=== PATIENT | male | born 1955 | race Caucasian/White ===

== ENCOUNTER → 2017-04-16 | Outpatient (CLI) | payer BC ==
--- NOTE | 2017-04-16 17:18 | RADRPT ---
PROCEDURE: Right knee radiographs. CLINICAL INDICATION: Right knee pain. TECHNIQUE: Three views. Weight bearing. Frontal, lateral, and patellar view. COMPARISON: No prior studies are available for comparison. FINDINGS: There is no fracture or dislocation. The soft tissues are normal. There are degenerative changes with osteophytes arising from all 3 joint compartment margins. There is medial joint compartment narrowing and subarticular sclerosis. There is no lytic or blastic lesion. There is no radiopaque foreign body. IMPRESSION: 1. Moderate degenerative changes of the right knee. RPTAT: QQ .Manuel Mata MD, MD Date Time Electronically viewed and signed by .Manuel Mata MD, on 04/16/2017 17:17 .R/
--- NOTE | 2017-04-24 06:34 | HKNOTE ---
DATE OF SERVICE: 04/16/2017 MAIN COMPLAINT: Pain in the right knee HISTORY OF MAIN COMPLAINT: Patient is a 61-year-old male who complains of pain in the right knee. He has had problems with the knee for at least 5 years. The pain has become worse lately. He saw Dr. Bullard in [place] (community sports coordinator) who wanted to perform an operative arthroscopy on the knee. The patient is here now for a 2nd opinion. He is referred by Dr. Rodriguez Buchanan. The patient has never had any injuries to the knee. He has never seen any other orthopedic surgeons for the knee. The patient has had cortisone injections, braces, physical therapy and ovqy-egm-[id number] anti-inflammatory medications all by way of conservative treatment for his knee. None of this has given him very much relief. The last cortisone injection was 18 months ago and this gave him minimal relief. PRESENT COMPLAINTS: Only other is History of Present Illness. The patient complains the pain is mostly in the posterior aspect of the knee. The pain radiates for an inch or two down the posterior aspect of the leg from the knee. Pain varies between moderate to severe. The knee and is unstable and gives way 2-3 times a week. He is not able to extend the knee fully. He sleeps with a pillow under his knee. His pain is aggravated by walking, weightbearing and stair climbing. Patient had a laminectomy of the lumbar spine at [facility] in 2011. He still has numbness and tingling in his legs. On a level surface, he cannot walk more than 2 blocks at a time without stopping. He has pain with every step that he takes. The patient limps all the time. He does not have a shoe lift. He has difficulty clipping his toenails. SPORTING ACTIVITIES: None at present. PAST ORTHOPEDIC HISTORY: Previous orthopedic operations: Lumbar laminectomy 2011 at [facility]. PRIOR CORTISONE INTAKE: The patient has had several courses of Medrol Dosepaks. He has also had cortisone injections. 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 OTHER JOINT PROBLEMS: Pain in the left knee and pain in his left hip as well. BLOOD TESTS FOR ARTHRITIS: Yes (diagnosed with osteoporosis!). PRIOR INJURIES TO HIPS OR KNEES: None. 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 There is a lot of stair climbing involved. PAST MEDICAL HISTORY: 1. Hypertension. 2. Hepatitis C, but that has been cured by [facility]. 3. Hypothyroid. PAST SURGICAL HISTORY: A facelift in 2011. An implant installed for constant urination 2005. Hair transplants 2010. The laminectomy 2010. Cataract surgery 2014. DRUG ALLERGIES: None. MEDICATIONS: Losartan 25 mg a day. Levothyroxine 0.08 mg a day. Lunesta 3 mg a day. FAMILY HISTORY: Father at 95 of heart problems. Mother age 90 alive, has hypertension and "eye issues." REVIEW OF SYSTEMS: Prone to heartburn, excess urination, excess night urination, occasional double vision, hypertension. He has passed kidney stones in the past. Retention of urine. HABITS: The patient does not smoke. He has been sober from alcohol for 16 years. INSURANCE SALES PROFESSIONAL: Dr. Jeffry Cameron, [address], [place], [place]. PHYSICAL EXAMINATION: GENERAL: The patient is a remarkably fit-looking 61-year-old male. He walks without a walking aid. He has a slight antalgic knee. VITAL SIGNS: Height 5 foot 10 inches, weight 197 pounds. Blood pressure 120/70, temperature 98.7. HIPS: Both hips have full range of motion without pain. LEFT KNEE: Clinically normal. RIGHT KNEE: The alignment is varus. Extension is full but forceful extension causes him quite marked pain. Flexion lacks 25 degrees (small pain on attempting further flexion). No effusion. Tender over the medial joint line. 2+ crepitus in the knee and under the patella. All ligaments are intact. IMAGING: Plain x-rays of the right knee obtained today in the [facility] [place] were reviewed. These show bone- on-bone loss of medial articular cartilage space with all the secondary changes associated with severe arthritis, including osteophytes, subchondral sclerosis, and intraosseous cyst formation. Similar changes are noted in the patellofemoral joint. There are possibly some loose bodies in the posterior aspect of the joint. A CT scan of the right knee obtained on 10/19/2013, was reported by Dr. Dhaliwal as showing severe degenerative osteoarthritis of the medial compartment of the joint. Early subchondral cyst formation. Small medial osteophytes. DIAGNOSES: 1. Extremely severe degenerative osteoarthritis of the right knee, affecting especially the medial and patellofemoral compartments. 2. Hypertension. 3. History of hepatitis C (cured). 4. Lumbar laminectomy. 5. Hypothyroidism. MANAGEMENT: Patient is advised that he will need to have a right knee replacement operation. There is no arthroscopic surgery that could give him any relief from the degree of pathology that he has in his knee. The operation of knee replacement was discussed with him in a fair amount of detail including illustrations of what exactly is done, what the operative course is postoperative course and post hospitalization course. The possible major complications were discussed. The patient is given a copy of my booklet on knee arthritis and knee replacement surgery. He is referred to my website, [facility]. Patient will call if and when he wishes to consider proceeding with surgery. I doubt that any further injections of cortisone into his knee would be of any benefit. Dictated By: Wilman Sultana MD /aydee/nessa /Document#: [id number]
--- NOTE | 2017-04-24 06:35 | HKNOTE ---
DATE OF SERVICE: 04/16/2017 Dr. Rodriguez Buchanan: Dear Jag: Thank you for referring Mr. Zi Melton, who was seen in my office today complaining of pain in his right knee. He has severe arthritis of his knee and will no doubt need to have a knee replacement sometime in the near future. Thank you for your confidence in referring him to my care. With warmest regards, Dictated By: Wilman Sultana MD /aydee/nessa /Document#: [id number]
--- NOTE | 2017-04-24 13:20 | HKNOTE ---
DATE OF SERVICE: 04/16/2017 REFERRING PHYSICIAN: Cem Humphrey MAIN COMPLAINT: Pain in the right knee for 5 years. HISTORY OF MAIN COMPLAINT: The patient is a 61-year-old male who has had pain in his right knee for more than 5 years. In 2001, the patient had pain and instability of his right knee. However, he did not see an orthopedic surgeon. Since then, he has had constant intermittent problems with his right knee. The patient has had a variety of conservative treatments, including cortisone injections, braces and physical therapy. He saw Dr. Bullard in [place] (a director of sports medicine) who wants to do an operative arthroscopy on the knee. The patient is here for a second opinion consultation. His last cortisone injection into his knee was 18 months ago. This gave him minimal improvement. PRESENT COMPLAINTS: The patient has right knee pain. It is mostly in the posterior aspect of the knee. The pain varies between moderate to severe. The right knee gives way two to three times a week for the past 5 years. He is not able to extend the knee fully. His main pain is posteriorly and medially. He sleeps with a pillow under his knee. His pain is aggravated by walking, weightbearing and stair climbing. He sometimes get rest pain, occasionally night pain. He takes [id number] anti-inflammatory medications and pain pills. He states "I can not even remember which ones anymore, I just deal with it." The patient has had a history of problems in his lower back. He currently has no back pain. He had a laminectomy performed in 2010, which was successful. On a level surface, he can walk about 2 blocks without stopping. He does not use a walker or a walking aid. He gets pain at every step that he takes. The patient does not limp at times. He does not have a shoe lift. He has difficulty clipping his toenails and tying his shoelaces on the right side. Sporting activities, the patient is cut out all his usual activities of tennis and weight lifting because of the pain in his knee. PAST ORTHOPEDIC HISTORY: Previous Orthopedic Operations: Laminectomy at [facility] at the L4-5 and L5-S1 levels in 2011. Prior Cortisone Intake: Cortisone injections and cortisone by mouth. The Medrol Dosepak would go on for several days at a time. The patient has been an alcoholic. He has been sober for 16 years. Other Joint Problems: None. Blood tests for arthritis, ES (negative). The patient has been diagnosed with osteoporosis as well. Prior Injuries to Hips or Knees: None. 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 His work involves a lot of driving and a lot of stair climbing. PAST MEDICAL HISTORY: 1. Hypertension. 2. Hepatitis C, which is now being cured with medication. 3. Hypothyroidism. PAST SURGICAL HISTORY: 1. Facelift in 2011. 2. "Butt" implants 2005. 3. Hair transplants 2014. 4. Laminectomy 2010. 5. Cataract surgery 2014. DRUG ALLERGIES: None. MEDICATIONS: 1. Losartan one a day. 2. Iothyponine, 5 mg once a day for his thyroid. 3. Levothyroxine 0.088 mcg daily for his thyroid. 4. Lunesta 3 mg at bedtime. FAMILY HISTORY: Father at 95 of heart problems. Mother is alive at 90, has hypertension "issues" with her eyes." REVIEW OF SYSTEMS: 1. Prone to heartburn. 2. Excess urination and excess night urination. 3. Hypertension. 4. Passed one kidney stone. 5. History of urinary retention. 6. History of tuberculosis. 7. Ankles tend to swell. 8. History of peptic ulcer disease. HABITS: The patient smokes. He does not drink alcoholic beverages. "I have been sober for 16 years." AUTO WASHER: Dr. Jeffry Cameron [address] [id number] PHYSICAL EXAMINATION: On physical examination, patient is a remarkably youthful and fit looking 61-year-old male. He walks with walking aide but his gait is slightly antalgic. DIRECTED HIP EXAMINATION: Both hips have a full range of motion without pain. EXAMINATION OF THE RIGHT KNEE: Alignment is normal. Pain in the knee on forced extension. Extension lacks 5 degrees (painful). Flexion lacks 15 degrees. No effusion present. 2+ crepitus in the knee and the patella. EXAMINATION OF THE LEFT KNEE: Normal alignment. Full range of motion. No tenderness anywhere around the knee. IMAGING: Plain x-rays of the right knee obtained today show bone on bone degenerative loss of the medial joint space. Marked osteoporosis. There may be some loose bodies noted in the posterior aspect of the knee. DIAGNOSIS: 1. Severe symptomatic degenerative osteoarthritis of the right knee, which has not resolved with conservative care. 2. Hypertension. 3. History of hepatitis. 4. History of face lift. 5. History of cataract surgery. 6. History of had transplantation. 7. Lumbar laminectomy. A CAT scan of the right knee obtained on 10/19/[address] Liang Neal MD as showing "osteoarthritis of the tibiofemoral compartments, associated with severe narrowing of the medial compartment. Multiple intra-articular bodies distributed along the posterior aspect of the medial joint line of the knee. Marked osteoarthritic changes over the of the patella." A CAT scan of the right knee obtained on 10/19/[address] Liang Neal MD as showing "one trace joint effusion present. Severe asymmetric narrowing of the medial tibiofemoral compartment associated with mild subchondral sclerosis. Early subchondral cyst and sclerosis, involves the medial compartment." The is dictated by Dr. Dhaliwal and shows the following. Trace joint effusion. Severe asymmetric narrowing of the medial tibiofemoral compartment associated with mild subchondral sclerosis. There is subchondral cyst formation involving the medial tibial plateau. Small medial tibiofemoral compartment. Osteophytes are present. Small osteophytes are present within the lateral tibiofemoral compartment. No associated joint narrowing is present. Smaller patella osteophyte is shown. DISCUSSION: A very fit and youthful looking DICTATION ENDS HERE Dictated By: Wilman Sultana MD /aydee/treasure /Document#: [id number]
== END | disposition home or self-care (01) ==
LOC: HKI 14:19
DX: M17.11 Unilateral primary osteoarthritis, right knee (principal); M25.561 Pain in right knee; I10 Essential (primary) hypertension; E03.9 Hypothyroidism, unspecified
CPT/HCPCS: 73562; G0463